=== PATIENT | male | born 1950 | race Caucasian/White ===

== ENCOUNTER 2016-08-23 15:52 | Emergency (ER) | payer BC ==
--- NOTE | 2016-08-23 16:56 | DIAGNOSTIC IMAGING REPORT ---
PROCEDURE: XR RIBS UNILAT W/PA CHEST-RT INDICATION: TRAUMA/INJURY TECHNIQUE: Two views of the right ribs with single PA view chest. COMPARISON: None. FINDINGS: RIGHT RIBS: No displaced rib fractures. No suspicious rib lesions. CHEST: Normal cardiomediastinal contour. No central venous congestion. Small hiatal hernia. Clear lungs. No pneumothorax or effusion. There is remote fracture and bridging callus involving the right mid to distal clavicle. Other osseous structures are intact. IMPRESSION: 1. Intact right ribs. 2. No evidence of underlying chest trauma. 3. Remote, healing right clavicle fracture.
--- NOTE | 2016-08-23 17:09 | ED NURSING NOTES ---
Clinical Report - Nurses [facility] [address] [place] [address] 08/23/2016 15:54 [id number] TRI[facility] Triage time 1602. Acuity: LEVEL 3. Chief Complaint: FALL (6 feet off ladder). MARLENE COMA SCORE: [place] Coma Scale: 15- eyes open spontaneously (4); best verbal response- oriented x 4 (5); best motor response- obeys commands (6). --20:08 Herlinda Bentley R.N. 16:00 08/23/16. BP: 138/81. HR: 59. RR: 20. O2 saturation: 99%. Temp: 98.6 F. Pain level now: 07/28. --20:08 Herlinda Bentley R.N. Weight: 90.7 kg stated. Height/Length: 68 inches Per Patient. BMI: 30.4. --16:14 Herlinda Bentley R.N. Medications ASA Oral 81mg daily . Atorvastatin Calcium Oral 80 mg, daily. Metoprolol Tartrate Oral 50 mg 1/4 of tab daily . --16:15 Herlinda Bentley R.N. Allergies Penicillins. --16:16 Herlinda Bentley R.N. History Arrived by private vehicle. Historian: patient. Accompanied by spouse. No primary care physician. This occurred (1 week ago). ( c/o right sided rib pain at T4-9 area MAL). No loss of consciousness. SOCIAL HX: Smoker- current status unknown (quit 2006 smoked 40 years 1ppd). Occasional alcohol use. No drug use. --20:08 Herlinda Bentley R.N. This occurred (occured about 1 week ago c/o rib pain). --20:09 Herlnida Bentley R.N. PROBLEMS: Hypertension. Cardiac stent . --16:18 Herlinda Bentley R.N. ADDITIONAL SURGERIES: Cardiac stent. Tonsillectomy. --16:18 Herlinda Bentley R.N. Interventions ID band on patient. To treatment room. --20:08 Herlinda Bentley R.N. PHYSICAL ASSESSMENT 16:02. Ambulatory to room. Patient gowned. GENERAL / NEURO / PSYCH: Alert. Oriented X 4. Appears in pain. HEENT: Head non-tender. RESPIRATORY: Respirations not labored. Chest wall: (rt rib pain). Chest wall tenderness. CVS: Capillary refill less than 2 seconds. GI / : Abdomen soft. SKIN: Skin is warm and dry. --16:19 Herlinda Bentley R.N. NURSING PROGRESS NOTES 16:02. Cold pack applied. Patient gowned. Reassurance given. Patient identifiers checked. Call light placed in reach. Side rails up. Bed placed in lowest position. Patient ready for evaluation- chart flagged. --16:18 Herlinda Bentley R.N. 16:20 08/23/16. Patient transported to radiology by wheelchair with tech. --16:20 Herlinda Bentley R.N. 16:32 08/23/16. Patient walked back to ED from radiology with tech. --16:32 Herlinda Bentley R.N. 17:00 resting quietly, telling jokes to staff. in no acute distress , waiting for results. --20:08 Herlinda Bentley R.N. DISPOSITION / DISCHARGE 17:35. Condition at departure: improved and stable. No learning barriers present. Discharge instructions provided and reviewed with the patient and spouse. Reviewed medication(s) (ultram, motrin). Patient and spouse verbalized understanding. Written instructions provided in Slovak. The patient was discharged home and accompanied by spouse. He left the Emergency Department ambulatory and via private vehicle. Spouse driving. MARLENE COMA SCORE: [place] Coma Scale: 15- eyes open spontaneously (4); best verbal response- oriented x 4 (5); best motor response- obeys commands (6). --20:07 Herlinda Bentley R.N. 17:35 08/23/16. BP: 124/78. HR: 62. RR: 18. O2 saturation: 100%. Temp: deferred. Pain level now: 08/28. --20:07 Herlinda Bentley R.N. Locked/Released at 08/23/2016 20:10 by Herlinda Bentley R.N.
--- NOTE | 2016-08-23 17:09 | ED ORDER SUMMARY ---
..... Patient: JUDY CHASE OrderSheet [facility] VisitID: [id number] [address] [place] [address] 66y, M Registration Date/Time: 08/23/2016 ORDER SHEET Weight: 90.7 kg (stated) Allergies: Penicillins GENERAL ORDERS: Ribs Unilat w PA Chest Right Urgent (16:15 08/23/2016 HBivens A.R.N.P.) (Ack 16:17 oerarcadio) [facility] [facility] Vitals (17:11 08/23/2016 HBivens A.R.N.P.) (20:10 Johnathan Petersen) MEDICATION ORDERS: IV FLUIDS: ORDER SHEET NOTES: [Electronically signed by Mylene De La OR.N.P. (17:53 08/23/2016)] [Electronically signed by Herlinda Bentley R.N. (20:10 08/23/2016)] [Electronically locked/signed by Herlinda Bentley R.N. (20:10 08/23/2016)]
--- NOTE | 2016-08-23 17:09 | ED CLINICAL REPORT ---
Clinical Report - Physicians/Mid Levels [facility] [address] [place] [address] 08/23/2016 15:54 [id number] Time Seen: 16:06; initial patient contact, initial documentation, patient care assumed. Arrived- By private vehicle. Historian- patient and spouse. HISTORY OF PRESENT ILLNESS Chief Complaint: FALL. Location of injuries- chest. The injury occurred about 1 weeks ago. Fell 5-6 feet off a ladder while standing and landed on the ground; slipped (and gravel). Occurred at home. The patient complains of moderate pain. No blow to the head, neck pain, loss of consciousness or seizure. Not dazed. REVIEW OF SYSTEMS No numbness, difficulty breathing, weakness, abdominal pain or laceration. No vomiting. He has had chest pain (R front ribs feel like they are popping) but no pain on weight bearing. hurts worse with deep breath, laughing. All systems otherwise negative, except as recorded above. PAST HISTORY See nurses notes. PROBLEMS: Hypertension. Cardiac stent . --16:18 Herlinda Bentley R.N. ADDITIONAL SURGERIES: Cardiac stent. Tonsillectomy. --16:18 Herlinda Bentley R.N. SOCIAL HISTORY Former smoker. Occasional alcohol use. No drug use. No recent travel. Is a local resident. He lives with spouse. FAMILY HISTORY No significant family medical history. ADDITIONAL NOTES The nursing notes have been reviewed with agreement regarding the chief complaint, HPI, ROS, PMH and patient medications and allergies. PHYSICAL EXAM Appearance: Alert. Oriented X3. No acute distress. Head: Head non-tender. No swelling of head. Eyes: Pupils equal, round and reactive to light. EOM intact. ENT: No dental injury. Pharynx normal. Neck: Painless ROM. Non-tender. CVS: Heart sounds normal. Pulses normal. Respiratory: Chest tender. Chest wall injury: mild tenderness located in the lower, right and anterior chest. No swelling. No laceration. No abrasion. No ecchymosis. No deformity. No injury to the costal cartilage, sternum, manubrium or xiphoid. No splinting present. No paradoxical movement. Breath sounds normal. Abdomen: No visible injury. Soft and nontender. Mildly obese. Back: No tenderness. ROM normal. Skin: Skin intact. Skin warm and dry. Normal skin color. Normal skin turgor. Extremities: Normal inspection. Pelvis stable. Extremities atraumatic. No lower extremity edema. Neuro: Oriented X 3. No motor deficit. No sensory deficit. LABS, X-RAYS, AND EKG X-Rays: Rib series. Sternum / Ribs X-rays: (IMPRESSION: 1. Intact right ribs. 2. No evidence of underlying chest trauma. 3. Remote, healing right clavicle fracture. Electronically Final signed by:Magali Bello MD 08/23/2016 4:56:30 PM). The X-rays were interpreted by the radiologist and contemporaneously by me. Interpretation time: 17:01. PROGRESS AND PROCEDURES Course of Care: pt politely declined pain med offer here. Patient and spouse counseled in person regarding the patient's stable condition, test results and diagnosis. 17:02. Differential Diagnosis: Other possible considerations: fall, rib fx, chest wall strain, contusion, organ trauma (pancreas, liver, gallbladder) hemorrhage, pneumo. Above considerations are based on history, physical exam, reassessment and X-Ray data. Differential diagnosis was discussed with patient and patient's spouse. Disposition: Discharged home in good and unchanged condition (17:09). Condition: good and stable. CLINICAL IMPRESSION Muscle strain of the anterior chest wall. Fall from ladder and on same level by slipping. INSTRUCTIONS Warnings: GENERAL WARNINGS: Return or contact your physician immediately if your condition worsens or changes unexpectedly, if not improving as expected, or if other problems arise. SPECIFICALLY, return if you develop incontinence of urine (loss of bladder control). trouble breathing, worsened chest/rib pain, abdominal pain. Prescription Medications: Ultram 50 mg tablets: take 1-2 orally every 6 hours as needed for pain. Dispense twenty (20). No refills. Substitution is permissible. Follow-up: Follow up with your doctor in about three days as needed. Call for an appointment. Summary of care provided to patient. Understanding of the discharge instructions verbalized by patient. (Electronically signed by Mylene De La O A.R.N.P. 08/23/2016 17:53) Isidro medellin TALIBYOSSIJUDY VisitID: [id number] Date: 08/23/2016 08/23/2016 18:04 16:00 08/23/16. BP: 138/81. HR: 59. RR: 20. O2 saturation: 99%. Temp: 98.6 F. Pain level now: 07/28 (Electronically signed by Mylene De La OPErasmo - 08/23/2016 18:04)
--- NOTE | 2016-08-23 17:09 | ED NURSING NOTES ---
Clinical Report - Nurses [facility] [address] [place] [address] 08/23/2016 15:54 [id number] TRI[facility] Triage time 1602. Acuity: LEVEL 3. Chief Complaint: FALL (6 feet off ladder). MARLENE COMA SCORE: Marlene Coma Scale: 15- eyes open spontaneously (4); best verbal response- oriented x 4 (5); best motor response- obeys commands (6). --20:08 Herlinda Bentley R.N. 16:00 08/23/16. BP: 138/81. HR: 59. RR: 20. O2 saturation: 99%. Temp: 98.6 F. Pain level now: 07/28. --20:08 Herlinda Bentley R.N. Weight: 90.7 kg stated. Height/Length: 68 inches Per Patient. BMI: 30.4. --16:14 Herlinda Bentley R.N. Medications ASA Oral 81mg daily . Atorvastatin Calcium Oral 80 mg, daily. Metoprolol Tartrate Oral 50 mg 1/4 of tab daily . --16:15 Herlinda Bentley R.N. Allergies Penicillins. --16:16 Herlinda Bentley R.N. History Arrived by private vehicle. Historian: patient. Accompanied by spouse. No primary care physician. This occurred (1 week ago). ( c/o right sided rib pain at T4-9 area MAL). No loss of consciousness. SOCIAL HX: Smoker- current status unknown (quit 2006 smoked 40 years 1ppd). Occasional alcohol use. No drug use. --20:08 Herlinda Bentley R.N. This occurred (occured about 1 week ago c/o rib pain). --20:09 Herlinda Bentley R.N. PROBLEMS: Hypertension. Cardiac stent . --16:18 Herlinda Bentley R.N. ADDITIONAL SURGERIES: Cardiac stent. Tonsillectomy. --16:18 Herlinda Bentley R.N. Interventions ID band on patient. To treatment room. --20:08 Herlinda Bentley R.N. PHYSICAL ASSESSMENT 16:02. Ambulatory to room. Patient gowned. GENERAL / NEURO / PSYCH: Alert. Oriented X 4. Appears in pain. HEENT: Head non-tender. RESPIRATORY: Respirations not labored. Chest wall: (rt rib pain). Chest wall tenderness. CVS: Capillary refill less than 2 seconds. GI / : Abdomen soft. SKIN: Skin is warm and dry. --16:19 Herlinda Bentley R.N. NURSING PROGRESS NOTES 16:02. Cold pack applied. Patient gowned. Reassurance given. Patient identifiers checked. Call light placed in reach. Side rails up. Bed placed in lowest position. Patient ready for evaluation- chart flagged. --16:18 Herlinda Bentley R.N. 16:20 08/23/16. Patient transported to radiology by wheelchair with tech. --16:20 Herlinda Bentley R.N. 16:32 08/23/16. Patient walked back to ED from radiology with tech. --16:32 Herlinda Bentley R.N. 17:00 resting quietly, telling jokes to staff. in no acute distress , waiting for results. --20:08 Herlinda Bentley R.N. DISPOSITION / DISCHARGE 17:35. Condition at departure: improved and stable. No learning barriers present. Discharge instructions provided and reviewed with the patient and spouse. Reviewed medication(s) (ultram, motrin). Patient and spouse verbalized understanding. Written instructions provided in Scottish. The patient was discharged home and accompanied by spouse. He left the Emergency Department ambulatory and via private vehicle. Spouse driving. MARLENE COMA SCORE: [place] Coma Scale: 15- eyes open spontaneously (4); best verbal response- oriented x 4 (5); best motor response- obeys commands (6). --20:07 Herlinda Bentley R.N. 17:35 08/23/16. BP: 124/78. HR: 62. RR: 18. O2 saturation: 100%. Temp: deferred. Pain level now: 08/28. --20:07 Herlinda Bentley R.N. Locked/Released at 08/23/2016 20:10 by Herlinda Bentley R.N.
--- NOTE | 2016-08-23 17:09 | ED ORDER SUMMARY ---
..... Patient: JUDY CHASE OrderSheet [facility] VisitID: [id number] [address] [place] [address] 66y, M Registration Date/Time: 08/23/2016 ORDER SHEET Weight: 90.7 kg (stated) Allergies: Penicillins GENERAL ORDERS: Ribs Unilat w PA Chest Right Urgent (16:15 08/23/2016 HBivens A.R.N.P.) (Ack 16:17 oerarcadio) ([facility] Vitals (17:11 08/23/2016 HBivens A.R.N.P.) (20:10 Johnathan Petersen) MEDICATION ORDERS: IV FLUIDS: ORDER SHEET NOTES: [Electronically signed by Mylene De La OR.N.P. (17:53 08/23/2016)] [Electronically signed by Herlinda Bentley R.N. (20:10 08/23/2016)] [Electronically locked/signed by Herlinda Bentley R.N. (20:10 08/23/2016)]
--- NOTE | 2016-08-23 17:09 | ED CLINICAL REPORT ---
Clinical Report - Physicians/Mid Levels [facility] [address] [place] [address] 08/23/2016 15:54 [id number] Time Seen: 16:06; initial patient contact, initial documentation, patient care assumed. Arrived- By private vehicle. Historian- patient and spouse. HISTORY OF PRESENT ILLNESS Chief Complaint: FALL. Location of injuries- chest. The injury occurred about 1 weeks ago. Fell 5-6 feet off a ladder while standing and landed on the ground; slipped (and gravel). Occurred at home. The patient complains of moderate pain. No blow to the head, neck pain, loss of consciousness or seizure. Not dazed. REVIEW OF SYSTEMS No numbness, difficulty breathing, weakness, abdominal pain or laceration. No vomiting. He has had chest pain (R front ribs feel like they are popping) but no pain on weight bearing. hurts worse with deep breath, laughing. All systems otherwise negative, except as recorded above. PAST HISTORY See nurses notes. PROBLEMS: Hypertension. Cardiac stent . --16:18 Herlinda Bentley R.N. ADDITIONAL SURGERIES: Cardiac stent. Tonsillectomy. --16:18 Herlinda Bentley R.N. SOCIAL HISTORY Former smoker. Occasional alcohol use. No drug use. No recent travel. Is a local resident. He lives with spouse. FAMILY HISTORY No significant family medical history. ADDITIONAL NOTES The nursing notes have been reviewed with agreement regarding the chief complaint, HPI, ROS, PMH and patient medications and allergies. PHYSICAL EXAM Appearance: Alert. Oriented X3. No acute distress. Head: Head non-tender. No swelling of head. Eyes: Pupils equal, round and reactive to light. EOM intact. ENT: No dental injury. Pharynx normal. Neck: Painless ROM. Non-tender. CVS: Heart sounds normal. Pulses normal. Respiratory: Chest tender. Chest wall injury: mild tenderness located in the lower, right and anterior chest. No swelling. No laceration. No abrasion. No ecchymosis. No deformity. No injury to the costal cartilage, sternum, manubrium or xiphoid. No splinting present. No paradoxical movement. Breath sounds normal. Abdomen: No visible injury. Soft and nontender. Mildly obese. Back: No tenderness. ROM normal. Skin: Skin intact. Skin warm and dry. Normal skin color. Normal skin turgor. Extremities: Normal inspection. Pelvis stable. Extremities atraumatic. No lower extremity edema. Neuro: Oriented X 3. No motor deficit. No sensory deficit. LABS, X-RAYS, AND EKG X-Rays: Rib series. Sternum / Ribs X-rays: (IMPRESSION: 1. Intact right ribs. 2. No evidence of underlying chest trauma. 3. Remote, healing right clavicle fracture. Electronically Final signed by:Magali Bello MD 08/23/2016 4:56:30 PM). The X-rays were interpreted by the radiologist and contemporaneously by me. Interpretation time: 17:01. PROGRESS AND PROCEDURES Course of Care: pt politely declined pain med offer here. Patient and spouse counseled in person regarding the patient's stable condition, test results and diagnosis. 17:02. Differential Diagnosis: Other possible considerations: fall, rib fx, chest wall strain, contusion, organ trauma (pancreas, liver, gallbladder) hemorrhage, pneumo. Above considerations are based on history, physical exam, reassessment and X-Ray data. Differential diagnosis was discussed with patient and patient's spouse. Disposition: Discharged home in good and unchanged condition (17:09). Condition: good and stable. CLINICAL IMPRESSION Muscle strain of the anterior chest wall. Fall from ladder and on same level by slipping. INSTRUCTIONS Warnings: GENERAL WARNINGS: Return or contact your physician immediately if your condition worsens or changes unexpectedly, if not improving as expected, or if other problems arise. SPECIFICALLY, return if you develop incontinence of urine (loss of bladder control). trouble breathing, worsened chest/rib pain, abdominal pain. Prescription Medications: Ultram 50 mg tablets: take 1-2 orally every 6 hours as needed for pain. Dispense twenty (20). No refills. Substitution is permissible. Follow-up: Follow up with your doctor in about three days as needed. Call for an appointment. Summary of care provided to patient. Understanding of the discharge instructions verbalized by patient. (Electronically signed by Mylene De La O A.R.N.P. 08/23/2016 17:53) Isidro medellin TALIBYOSSIJUDY VisitID: [id number] Date: 08/23/2016 08/23/2016 18:04 16:00 08/23/16. BP: 138/81. HR: 59. RR: 20. O2 saturation: 99%. Temp: 98.6 F. Pain level now: 07/28 (Electronically signed by Mylene De La OPErasmo - 08/23/2016 18:04)
--- NOTE | 2016-08-23 20:10 | ED MED RECONCILIATION SUMMARY ---
Patient: TALIBSONJUDY Goodwin Medication Reconciliation Report [facility] VisitID: [id number] [address] [place] [address] 66y, M Registration Date/Time: 08/23/2016 Weight: 90.7 kg Height/Length: 68 in. BMI: 30.4 ALLERGIES: Penicillins The patient's Home Medications are listed below: THE FOLLOWING MEDICATIONS NEED TO BE RECONCILED: ASA Oral 81mg daily Atorvastatin Calcium Oral 80 mg, daily Metoprolol Tartrate Oral 50 mg 1/4 of tab daily The source(s) of the original Home Medication information: Not obtained. The following Medications were given to the patient in the Emergency Department: None. The following Medications were prescribed to the patient: Ultram 50 mg tablets: take 1-2 orally every 6 hours as needed for pain. Dispense twenty (20). No refills. Substitution is permissible. -- Mylene De La O A.R.N.P.
--- NOTE | 2016-08-23 20:10 | ED MAR SUMMARY ---
..... Medication Administration Record [facility] [address], [place] [id number] Patient: JUDY CHASE Visit ID: [id number] 66y, M Weight: 90.7 kg Height/Length: 68 in BMI: 30.4 ALLERGIES: Penicillins
--- NOTE | 2016-08-23 20:10 | ED DISCHARGE INSTRUCTIONS ---
Patient: JUDY CHASE General Instructions [facility] VisitID: [id number] [place] [address] 66y, M Registration Date/Time: 08/23/2016 Muscle strain of the anterior chest wall. Fall from ladder and on same level by slipping. INSTRUCTIONS Warnings: GENERAL WARNINGS: Return or contact your physician immediately if your condition worsens or changes unexpectedly, if not improving as expected, or if other problems arise. SPECIFICALLY, return if you develop incontinence of urine (loss of bladder control). trouble breathing, worsened chest/rib pain, abdominal pain. Prescription Medications: Ultram 50 mg tablets: take 1-2 orally every 6 hours as needed for pain. Dispense twenty (20). No refills. Substitution is permissible. Follow-up: Follow up with your doctor in about three days as needed. Call for an appointment. Summary of care provided to patient. Understanding of the discharge instructions verbalized by patient. ADDITIONAL INFORMATION Mechanical Fall You have had a fall today. It appears that the cause is mechanical. That means that you slipped, tripped or lost your balance. If your fall had been due to fainting or a seizure, further tests would be required. Home Care: Rest today and resume your normal activities when you are feeling back to normal. If you were injured during the fall, follow the advice from your doctor regarding care of your injury. You may use acetaminophen (Tylenol) or ibuprofen (Motrin, Advil) to control pain, unless another pain medicine was prescribed. [NOTE: If you have chronic liver or kidney disease or ever had a stomach ulcer or GI bleeding, talk with your doctor before using these medicines.] Fall Prevention: Was there anything that caused your fall that can be fixed, removed, or replaced? Make your home safe by keeping walkways clear of objects you may trip over. Use non-slip pads under rugs. Do not walk in poorly lit areas. Do not stand on chairs or wobbly ladders. Use caution when reaching overhead or looking upward. This position can cause a loss of balance. Be sure your shoes fit properly, have non-slip bottoms and are in good condition. Be cautious when going up and down curbs, and walking on uneven sidewalks. If your balance is poor, consider using a cane or walker. Stay as active as you can. Balance, flexibility, strength, and endurance all come from exercise. They all play a role in preventing falls. Follow Up with your doctor or as advised by our staff. Get Prompt Medical Attention if any of the following occur: Repeated mechanical falls, or unexplained falls Dizziness, fainting or seizure Severe headache Chest pain or shortness of breath Palpitations (very rapid or very slow or irregular heartbeat) Blood in vomit, stools (black or red color) Weakness of an arm or leg or one side of the face Difficulty with speech or vision Chest Strain A strain of the chest is due to stretching and tearing of the muscle fibers between the ribs. This may occur as a result of severe coughing, strenuous lifting or twisting injuries of the upper back. This usually causes increased pain with movement or deep breathing. This may take a few days to a few weeks to heal. Home Care: Rest. Avoid heavy lifting or strenuous exertion. Avoid any activity that causes pain. If you have a severe cough, use a cough syrup such as Robitussin DM (containing dextromethorphan) unless another cough medicine was prescribed. You may use acetaminophen (Tylenol) or ibuprofen (Motrin, Advil) to control pain, unless another medicine was prescribed. [ NOTE: If you have chronic liver or kidney disease or ever had a stomach ulcer or GI bleeding, talk with your doctor before using these medicines.] Follow Up with your doctor as directed. Get Prompt Medical Attention if any of the following occur: A change in the type of pain: if it feels different, becomes more severe, lasts longer, or begins to spread into your shoulder, arm, neck, jaw or back Shortness of breath or increased pain with breathing Cough with dark colored sputum (phlegm) or blood Weakness, dizziness, or fainting Fever of 100.4F (38C) or higher, or as directed by your healthcare provider Tramadol Hydrochloride Oral tablet What is this medicine? TRAMADOL (TRA ma dole) is a pain reliever. It is used to treat moderate to severe pain in adults. How should I use this medicine? Take this medicine by mouth with a full glass of water. Follow the directions on the prescription label. If the medicine upsets your stomach, take it with food or milk. Do not take more medicine than you are told to take. Talk to your developer advisor regarding the use of this medicine in children. Special care may be needed. What side effects may I notice from receiving this medicine? Side effects that you should report to your doctor or health career guidance counselor as soon as possible: allergic reactions like skin rash, itching or hives, swelling of the face, lips, or tongue breathing difficulties, wheezing confusion itching light headedness or fainting spells redness, blistering, peeling or loosening of the skin, including inside the mouth seizures Side effects that usually do not require medical attention (report to your doctor or health career guidance counselor if they continue or are bothersome): constipation dizziness drowsiness headache nausea, vomiting What may interact with this medicine? Do not take this medicine with any of the following medications: MAOIs like Carbex, Eldepryl, Marplan, Nardil, and Parnate This medicine may also interact with the following medications: alcohol or medicines that contain alcohol antihistamines benzodiazepines bupropion carbamazepine or oxcarbazepine clozapine cyclobenzaprine digoxin furazolidone linezolid medicines for depression, anxiety, or psychotic disturbances medicines for migraine headache like almotriptan, eletriptan, frovatriptan, naratriptan, rizatriptan, sumatriptan, zolmitriptan medicines for pain like pentazocine, buprenorphine, butorphanol, meperidine, nalbuphine, and propoxyphene medicines for sleep muscle relaxants naltrexone phenobarbital phenothiazines like perphenazine, thioridazine, chlorpromazine, mesoridazine, fluphenazine, prochlorperazine, promazine, and trifluoperazine procarbazine warfarin What if I miss a dose? If you miss a dose, take it as soon as you can. If it is almost time for your next dose, take only that dose. Do not take double or extra doses. Where should I keep my medicine? Keep out of the reach of children. Store at room temperature between 15 and 30 degrees C (59 and 86 degrees F). Keep container tightly closed. Throw away any unused medicine after the expiration date. What should I tell my health care provider before I take this medicine? They need to know if you have any of these conditions: brain tumor depression drug abuse or addiction head injury if you frequently drink alcohol containing drinks kidney disease or trouble passing urine liver disease lung disease, asthma, or breathing problems seizures or epilepsy suicidal thoughts, plans, or attempt; a previous suicide attempt by you or a family member an unusual or allergic reaction to tramadol, codeine, other medicines, foods, dyes, or preservatives or trying to get breast-feeding What should I watch for while using this medicine? Tell your doctor or health career guidance counselor if your pain does not go away, if it gets worse, or if you have new or a different type of pain. You may develop tolerance to the medicine. Tolerance means that you will need a higher dose of the medicine for pain relief. Tolerance is normal and is expected if you take this medicine for a long time. Do not suddenly stop taking your medicine because you may develop a severe reaction. Your body becomes used to the medicine. This does NOT mean you are addicted. Addiction is a behavior related to getting and using a drug for a non-medical reason. If you have pain, you have a medical reason to take pain medicine. Your doctor will tell you how much medicine to take. If your doctor wants you to stop the medicine, the dose will be slowly lowered over time to avoid any side effects. You may get drowsy or dizzy. Do not drive, use machinery, or do anything that needs mental alertness until you know how this medicine affects you. Do not stand or sit up quickly, especially if you are an older patient. This reduces the risk of dizzy or fainting spells. Alcohol can increase or decrease the effects of this medicine. Avoid alcoholic drinks. You may have constipation. Try to have a bowel movement at least every 2 to 3 days. If you do not have a bowel movement for 3 days, call your doctor or health career guidance counselor. Your mouth may get dry. Chewing sugarless gum or sucking hard candy, and drinking plenty of water may help. Contact your doctor if the problem does not go away or is severe. You have been given the following additional information: Fall, Mechanical Chest Wall Strain Tramadol Hydrochloride Oral tablet (Electronically signed by Mylene De La O A.R.N.P. 08/23/2016 17:53)
--- NOTE | 2016-08-23 20:10 | ED MAR SUMMARY ---
..... Medication Administration Record [facility] [address] [place], [place] [id number] Patient: JUDY CHASE Visit ID: [id number] 66y, M Weight: 90.7 kg Height/Length: 68 in BMI: 30.4 ALLERGIES: Penicillins
--- NOTE | 2016-08-23 20:10 | ED MED RECONCILIATION SUMMARY ---
Patient: TALIBSONJUDY Goodwin Medication Reconciliation Report [facility] VisitID: [id number] [address] [place] [place] [address] 66y, M Registration Date/Time: 08/23/2016 Weight: 90.7 kg Height/Length: 68 in. BMI: 30.4 ALLERGIES: Penicillins The patient's Home Medications are listed below: THE FOLLOWING MEDICATIONS NEED TO BE RECONCILED: ASA Oral 81mg daily Atorvastatin Calcium Oral 80 mg, daily Metoprolol Tartrate Oral 50 mg 1/4 of tab daily The source(s) of the original Home Medication information: Not obtained. The following Medications were given to the patient in the Emergency Department: None. The following Medications were prescribed to the patient: Ultram 50 mg tablets: take 1-2 orally every 6 hours as needed for pain. Dispense twenty (20). No refills. Substitution is permissible. -- Mylene De La O A.R.N.P.
== END 2016-08-23 17:38 | disposition home or self-care (01) ==
LOC: ED SRH 15:52
DX: S29.011A Strain of muscle and tendon of front wall of thorax, initial encounter (principal); W11.XXXA Fall on and from ladder, initial encounter; Y93.9 Activity, unspecified; Y92.009 Unspecified place in unspecified non-institutional (private) residence as the place of occurrence of the external cause; Y99.8 Other external cause status; I10 Essential (primary) hypertension; Z87.891 Personal history of nicotine dependence; Z79.899 Other long term (current) drug therapy; Z88.0 Allergy status to penicillin